=== PATIENT | male | born 1970 | race American Indian/Alaskan Native ===

== ENCOUNTER 2017-04-24 08:02 | Emergency (ER) | payer MEDICARE ==
[2017-04-24 08:13] VITALS: BP 151/94
[2017-04-24] MEDS ORDERED: DUONEB 0.5 MG-3 MG/3 ML SOLN IH ONE ×2 (08:13→10:19)
--- NOTE | 2017-04-24 08:46 | Emergency Department Report ---
HPI - General Chief Complaint: Adult Asthma Time Seen by Provider: 04/24/17 08:29 - HPI HPI: Patient is a 47-year-old male with a history of asthma whose dates he said some cold symptoms for the past week and received a treatment of pigmentary on April 19. Patient states today he began having some chest and some difficulty breathing. He denies fevers/chills/nausea/vomiting/coughing/abdominal pain/shortness of breath since dizziness ED Past Medical Hx - Past Medical History Previous Medical History?: Yes Hx Asthma: Yes - Surgical History Past Surgical History?: Yes Additional Surgical History: right collar bone surgery - Social History Smoking Status: Never Smoker Substance Use Type: Alcohol, Prescribed - Medications Home Medications: Home Medications Medication Instructions Recorded Confirmed Last Taken Type ALBUTEROL Inhaler [Proair] 2 puff IH QID PRN #1 pump 04/24/17 Unknown Rx Ipratropium/Albuterol Sulfate 1 ampul IH ONCE #1 pack 04/24/17 Unknown Rx [Duoneb 0.5 mg-3 mg/3 ml Soln] predniSONE [Deltasone] 20 mg PO QDAY #10 tab 04/24/17 Unknown Rx ED Review of Systems ROS: Stated complaint: ASTHMA Other details as noted in HPI Constitutional: denies: chills, fever Eyes: denies: eye pain, eye discharge, vision change ENT: congestion. denies: ear pain, throat pain Respiratory: wheezing. denies: cough, shortness of breath Cardiovascular: denies: chest pain, palpitations Endocrine: no symptoms reported Gastrointestinal: denies: abdominal pain, nausea, diarrhea Genitourinary: denies: urgency, dysuria Musculoskeletal: denies: back pain, joint swelling, arthralgia Skin: denies: rash, lesions Neurological: denies: headache, weakness, paresthesias Psychiatric: denies: anxiety, depression Hematological/Lymphatic: denies: easy bleeding, easy bruising Physical Exam - Physical Exam Vital Signs: Vital Signs 04/24/17 04/24/17 04/24/17 08:07 08:21 08:27 Temperature 97.5 F L Pulse Rate 81 Pulse Rate [ 85 88 Bilateral Upper Lobe] Respiratory 22 Rate Respiratory 20 20 Rate [Bilateral Upper Lobe] Blood Pressure 151/94 O2 Sat by Pulse 95 Oximetry Physical Exam: GENERAL: Alert and oriented x3, no apparent distress, Normal Gait, atraumatic. HEAD: Head is normocephalic and a-traumatic. NOSE: Nose symetrical, Nontender,Nares appeared normal. MOUTH:Mouth is well hydrated and without lesions. Tonsils nonerythematous or swollen, Uvula midline, Tongue not elevated. Mucous membranes are moist. Posterior pharynx clear, no exudate or lesions. Patent airways. NECK: Supple. Non edematous, No carotid bruits. No lymphadenopathy or thyromegaly. No C-spine tenderness LUNGS: Symetrical with respiration, moderate expiratory wheezing lower lungs bilaterally, no rales or crackles, CTAB. No use of accessory muscles HEART: S1, S2 present, regular rate and rhythm without murmur, no rubs, no gallops. SKIN: Warm and dry, No lesions, No ulceration or induration present. ED Course Vital Signs 04/24/17 04/24/17 04/24/17 08:07 08:21 08:27 Temperature 97.5 F L Pulse Rate 81 Pulse Rate [ 85 88 Bilateral Upper Lobe] Respiratory 22 Rate Respiratory 20 20 Rate [Bilateral Upper Lobe] Blood Pressure 151/94 O2 Sat by Pulse 95 Oximetry ED Medical Decision Making - Medical Decision Making 47-year-old male presents to asthma exacerbation ED course: Patient received 3 respiratory treatments of DuoNeb, Solu-Medrol. Patient's sounds and is feeling much better. Discussed with patient to follow up with primary care physician. Discussed the patient to use albuterol as needed at home. Discuss home medication of prednisone and refill on his nebulizer treatment Vital signs normalized patient is in no acute or respiratory distress Patient is alert and oriented 3 his very appreciated and states he will follow- up, Critical care attestation.: If time is entered above; I have spent that time in minutes in the direct care of this critically ill patient, excluding procedure time. ED Disposition Clinical Impression: Asthma exacerbation Disposition: DISCHARGED TO HOME OR SELFCARE Is pt being admited?: No Does the pt Need Aspirin: No Condition: Stable Instructions: Asthma (ED) Additional Instructions: if worsening symptoms return to ED Taken medication as prescribed Prescriptions: ALBUTEROL Inhaler [Proair] 2 puff IH QID PRN #1 pump PRN Reason: Shortness Of Breath Ipratropium/Albuterol Sulfate [Duoneb 0.5 mg-3 mg/3 ml Soln] 1 ampul IH ONCE #1 pack predniSONE [Deltasone] 20 mg PO QDAY #10 tab Referrals: PRIMARY CARE, [Primary Care Provider] - 3-5 Days [facility] [Outside] - 3-5 Days [facility] [Outside] - 3-5 Days [facility] [Outside] - 3-5 Days Forms: Work/School Release Form(ED) Time of Disposition: 10:32
[2017-04-24] MEDS ORDERED: ZOFRAN IV ONE (09:03)
== END 2017-04-24 11:21 | disposition home or self-care (01) ==
LOC: ED 08:02
DX: J45.909 Unspecified asthma, uncomplicated (principal)
CPT/HCPCS: 94640; 96374; 96375; 99283; J2405; J2930

== ENCOUNTER 2017-08-20 02:38 | Emergency (ER) | payer MEDICARE ==
[2017-08-20] MEDS ORDERED: DUONEB *Not for PRN Use IH ONE ×2 (02:54→03:03)
[2017-08-20] MEDS ORDERED: PROVENTIL IH ONE (03:18)
[2017-08-20] MEDS ORDERED: ATROVENT IH ONE (03:18)
--- NOTE | 2017-08-20 03:39 | Emergency Department Report ---
ED Shortness of Breath HPI - General Chief Complaint: Adult Asthma Stated Complaint: ASTHMA Time Seen by Provider: 08/20/17 03:28 Source: patient Mode of arrival: Ambulatory Limitations: No Limitations - History of Present Illness Initial Comments: 47 years old male with history of asthma coming with shortness of breath cough for 2 days, patient was using his inhaler at home was no improvement. Patient denied any chest pain he does have fever denied any nausea or vomiting. MD Complaint: shortness of breath, cough, "asthma attack" -: days(s) Improves With: bronchodilators Known History Of: asthma Associated Symptoms: denies other symptoms, cough Treatments Prior to Arrival: bronchodilator - Related Data Home Oxygen Therapy: No Previous Rx's Medication Instructions Recorded Last Taken Type ALBUTEROL Inhaler [Proair] 2 puff IH QID PRN #1 pump 04/24/17 Unknown Rx Ipratropium/Albuterol Sulfate 1 ampul IH ONCE #1 pack 04/24/17 Unknown Rx [DUONEB *Not for PRN Use*] predniSONE [Deltasone] 20 mg PO QDAY #10 tab 04/24/17 Unknown Rx ALBUTEROL Inhaler [Proair] 2 puff IH QID PRN #1 inhalation 08/20/17 Unknown Rx Azithromycin [Zithromax Z-CEZAR] 250 mg PO DAILY 1 Days 08/20/17 Unknown Rx Prednisone [predniSONE 10 mg 10 mg PO .TAPER #1 tab.ds.pk 08/20/17 Unknown Rx (6-Day Pack, 21 Tabs)] Allergies Allergy/AdvReac Type Severity Reaction Status Date / Time Penicillins Allergy Shortness Verified 04/24/17 08:13 of Breath ED Review of Systems ROS: Stated complaint: ASTHMA Other details as noted in HPI Comment: All other systems reviewed and negative Constitutional: denies: chills, fever Respiratory: denies: cough, shortness of breath, SOB with exertion Cardiovascular: denies: chest pain, palpitations, dyspnea on exertion Gastrointestinal: denies: abdominal pain, nausea, vomiting Neurological: denies: headache, weakness, paresthesias ED Past Medical Hx - Past Medical History Previous Medical History?: Yes Hx Asthma: Yes - Surgical History Additional Surgical History: right collar bone surgery - Social History Smoking Status: Never Smoker - Medications Home Medications: Home Medications Medication Instructions Recorded Confirmed Last Taken Type ALBUTEROL Inhaler [Proair] 2 puff IH QID PRN #1 pump 04/24/17 Unknown Rx Ipratropium/Albuterol Sulfate 1 ampul IH ONCE #1 pack 04/24/17 Unknown Rx [DUONEB *Not for PRN Use*] predniSONE [Deltasone] 20 mg PO QDAY #10 tab 04/24/17 Unknown Rx ALBUTEROL Inhaler [Proair] 2 puff IH QID PRN #1 inhalation 08/20/17 Unknown Rx Azithromycin [Zithromax Z-CEZAR] 250 mg PO DAILY 1 Days 08/20/17 Unknown Rx Prednisone [predniSONE 10 mg 10 mg PO .TAPER #1 tab.ds.pk 08/20/17 Unknown Rx (6-Day Pack, 21 Tabs)] ED Physical Exam - General Limitations: No Limitations General appearance: alert, in distress (moderate respiratory distress) - Head Head exam: Present: atraumatic - ENT ENT exam: Present: normal exam - Neck Neck exam: Present: normal inspection - Respiratory Respiratory exam: Present: respiratory distress (moderate), wheezes, rales, rhonchi, accessory muscle use, decreased breath sounds, prolonged expiratory. Absent: stridor - Cardiovascular Cardiovascular Exam: Present: regular rate, normal rhythm, normal heart sounds - GI/Abdominal GI/Abdominal exam: Present: soft. Absent: tenderness, guarding, rebound - Back Exam Back exam: Absent: CVA tenderness (R), CVA tenderness (L) - Neurological Exam Neurological exam: Present: alert, oriented X3, CN II-XII intact - Skin Skin exam: Present: warm, intact, normal color ED Course Vital Signs 08/20/17 08/20/17 08/20/17 02:43 02:55 03:15 Temperature 98.0 F 99.7 F H Pulse Rate 73 73 Pulse Rate [ Bilateral Middle Lobe] Respiratory 18 22 16 Rate Respiratory Rate [Bilateral Middle Lobe] Blood Pressure 127/87 125/87 O2 Sat by Pulse 96 98 98 Oximetry 08/20/17 08/20/17 08/20/17 03:28 03:30 03:45 Temperature Pulse Rate 67 67 Pulse Rate [ 70 Bilateral Middle Lobe] Respiratory 10 L 7 L Rate Respiratory 18 Rate [Bilateral Middle Lobe] Blood Pressure 125/91 125/91 O2 Sat by Pulse 100 100 Oximetry 08/20/17 08/20/17 04:00 04:15 Temperature Pulse Rate 64 68 Pulse Rate [ Bilateral Middle Lobe] Respiratory 10 L 12 Rate Respiratory Rate [Bilateral Middle Lobe] Blood Pressure 135/90 135/90 O2 Sat by Pulse 99 99 Oximetry - Reevaluation(s) Reevaluation #1: 08/20/17 06:08 Patient stated that he is feeling much better. On exam lungs clear almost side , patient will be discharged home with prednisone and prescription for pro-air. ED Medical Decision Making - Radiology Data Radiology results: image reviewed Chest x-ray is negative for acute abnormality Critical care attestation.: If time is entered above; I have spent that time in minutes in the direct care of this critically ill patient, excluding procedure time. ED Disposition Clinical Impression: Asthma exacerbation Disposition: DC-01 TO HOME OR SELFCARE Is pt being admited?: No Condition: Stable Instructions: Asthma (ED) Prescriptions: ALBUTEROL Inhaler [Proair] 2 puff IH QID PRN #1 inhalation PRN Reason: Shortness Of Breath Azithromycin [Zithromax Z-CEZAR] 250 mg PO DAILY 1 Days Prednisone [predniSONE 10 mg (6-Day Pack, 21 Tabs)] 10 mg PO .TAPER #1 tab.ds.pk
[2017-08-20] MEDS ORDERED: ZOFRAN IV ONE (04:31)
[2017-08-20 06:44] VITALS: BP 125/91
--- NOTE | 2017-08-20 09:18 | XRay Report ---
Single view chest: History: Asthma. Findings: Normal cardiomediastinal silhouette. Trachea is midline. No consolidation, pneumothorax or pleural effusion. Impression: No acute cardiopulmonary findings.
== END 2017-08-20 06:44 | disposition home or self-care (01) ==
LOC: ED 02:38
DX: J45.901 Unspecified asthma with (acute) exacerbation (principal); Z88.0 Allergy status to penicillin
CPT/HCPCS: 71010; 94640; 96374; 96375; 99284; J2405; J2930

== ENCOUNTER 2017-10-18 11:25 | Emergency (ER) | payer MEDICARE ==
[2017-10-18] MEDS ORDERED: PROVENTIL IH ONE ×2 (11:46→11:48)
[2017-10-18] MEDS ORDERED: ATROVENT IH ONE ×2 (11:46→11:49)
[2017-10-18 12:02] LABS: Basophils % (Auto) 0.9 % (0.0-1.8); Eosinophils % (Auto) 11.6 % (0.0-4.3); Mean Corpuscular HGB Conc 34 % (32-34); Mean Corpuscular Hemoglobin 30 pg (28-32); Mean Corpuscular Volume 88 fl (84-94); Platelet Count 220 K/mm3 (140-440); Red Blood Count 6.01 M/mm3 (3.65-5.03); Red Cell Distribution Width 14.2 % (13.2-15.2); White Blood Count 7.5 K/mm3 (4.5-11.0)
[2017-10-18] MEDS ORDERED: MAGNESIUM SULFATE 2GM/50ML 2 GM/50 ML BAG IV ONE (12:16)
[2017-10-18] MEDS ORDERED: ZOFRAN IV ONE (12:16)
[2017-10-18 12:19] LABS: INR 0.89 (0.87-1.13)
[2017-10-18 12:19] LABS: Anion Gap 19 mmol/L; BUN/Creatinine Ratio 16; Blood Urea Nitrogen 14 mg/dL (9-20); Calcium 9.8 mg/dL (8.4-10.2); Carbon Dioxide 25 mmol/L (22-30); Chloride 100.5 mmol/L (98-107); Glucose 85 mg/dL (75-100); Potassium 4.5 mmol/L (3.6-5.0); Sodium 140 mmol/L (137-145)
[2017-10-18 12:20] LABS: Creatine Kinase MB 2.7 ng/mL (0.0-4.0); Partial Thromboplastin Time 33.4 Sec. (24.2-36.6)
[2017-10-18 12:22] LABS: Alanine Aminotransferase 24 units/L (7-56); Albumin 4.7 g/dL (3.9-5); Albumin/Globulin Ratio 1.4 %; Alkaline Phosphatase 66 units/L (35-129); Creatine Kinase 194 units/L (55-170); Total Protein 8.1 g/dL (6.3-8.2)
[2017-10-18 12:27] LABS: Bilirubin,Direct < 0.2 mg/dL (0-0.2); Bilirubin,Indirect 0.6 mg/dL
--- NOTE | 2017-10-18 12:29 | XRay Report ---
AP CHEST: HISTORY: Hypertension, shortness of breath AP view of the chest demonstrates a normal mediastinal and cardiac contour with clear lungs and normal bony and soft tissue structures. IMPRESSION: Unremarkable AP chest.
--- NOTE | 2017-10-18 13:12 | Emergency Department Report ---
ED General Adult HPI - General Chief complaint: Adult Asthma Stated complaint: ASTHMA ATTACK Time Seen by Provider: 10/18/17 11:48 Source: patient Mode of arrival: Ambulatory Limitations: No Limitations - History of Present Illness Initial comments: The patient complains of exacerbation of his asthma. He stated he returned from [facility] and his asthma has been flared up for the past few days. He states there is nothing atypical about it. He does not refer any productive cough. Denies chest pain fever or chills. He said no leg pain swelling or pain. He states he needs Solu-Medrol. He is not currently on steroids. He is already received neb therapy, my encounter. He states he is about ready to leave even before he just received his steroids. -: Gradual, days(s) Consistency: constant (wheezing but no pain) Associated Symptoms: denies other symptoms Treatments Prior to Arrival: none - Related Data Previous Rx's Medication Instructions Recorded Last Taken Type ALBUTEROL Inhaler [Proair] 2 puff IH QID PRN #1 pump 04/24/17 Unknown Rx Ipratropium/Albuterol Sulfate 1 ampul IH ONCE #1 pack 04/24/17 Unknown Rx [DUONEB *Not for PRN Use*] predniSONE [Deltasone] 20 mg PO QDAY #10 tab 04/24/17 Unknown Rx ALBUTEROL Inhaler [Proair] 2 puff IH QID PRN #1 inhalation 08/20/17 Unknown Rx Azithromycin [Zithromax Z-CEZAR] 250 mg PO DAILY 1 Days tab 08/20/17 Unknown Rx Prednisone [predniSONE 10 mg 10 mg PO .TAPER #1 tab.ds.pk 08/20/17 Unknown Rx (6-Day Pack, 21 Tabs)] ALBUTEROL Inhaler [ProAir HFA 2 puff IH QID PRN #1 inhalation 10/18/17 Unknown Rx Inhaler] Albuterol Sulfate [Albuterol 0.63% 0.63 mg IH QID PRN 30 Days #1 ml 10/18/17 Unknown Rx NEBS] Fluticasone/Salmeterol [Advair 1 puff IH BID #1 disk.w.dev 10/18/17 Unknown Rx Diskus 500-50 mcg] predniSONE [Deltasone] 60 mg PO QDAY #20 tab 10/18/17 Unknown Rx Allergies Allergy/AdvReac Type Severity Reaction Status Date / Time Penicillins Allergy Shortness Verified 04/24/17 08:13 of Breath ED Review of Systems ROS: Stated complaint: ASTHMA ATTACK Other details as noted in HPI Constitutional: denies: chills, fever Eyes: denies: eye pain, eye discharge, vision change ENT: denies: ear pain, throat pain Respiratory: wheezing Cardiovascular: denies: chest pain, palpitations Endocrine: no symptoms reported Gastrointestinal: denies: abdominal pain, nausea, diarrhea Genitourinary: denies: urgency, dysuria Musculoskeletal: denies: back pain, joint swelling, arthralgia Skin: denies: rash, lesions Neurological: denies: headache, weakness, paresthesias Psychiatric: denies: anxiety, depression Hematological/Lymphatic: denies: easy bleeding, easy bruising ED Past Medical Hx - Past Medical History Previous Medical History?: Yes Hx Asthma: Yes - Surgical History Additional Surgical History: right collar bone surgery - Social History Smoking Status: Never Smoker Substance Use Type: None - Medications Home Medications: Home Medications Medication Instructions Recorded Confirmed Last Taken Type ALBUTEROL Inhaler [Proair] 2 puff IH QID PRN #1 pump 04/24/17 Unknown Rx Ipratropium/Albuterol Sulfate 1 ampul IH ONCE #1 pack 04/24/17 Unknown Rx [DUONEB *Not for PRN Use*] predniSONE [Deltasone] 20 mg PO QDAY #10 tab 04/24/17 Unknown Rx ALBUTEROL Inhaler [Proair] 2 puff IH QID PRN #1 inhalation 08/20/17 Unknown Rx Azithromycin [Zithromax Z-CEZAR] 250 mg PO DAILY 1 Days tab 08/20/17 Unknown Rx Prednisone [predniSONE 10 mg 10 mg PO .TAPER #1 tab.ds.pk 08/20/17 Unknown Rx (6-Day Pack, 21 Tabs)] ALBUTEROL Inhaler [ProAir HFA 2 puff IH QID PRN #1 inhalation 10/18/17 Unknown Rx Inhaler] Albuterol Sulfate [Albuterol 0.63% 0.63 mg IH QID PRN 30 Days #1 ml 10/18/17 Unknown Rx NEBS] Fluticasone/Salmeterol [Advair 1 puff IH BID #1 disk.w.dev 10/18/17 Unknown Rx Diskus 500-50 mcg] predniSONE [Deltasone] 60 mg PO QDAY #20 tab 10/18/17 Unknown Rx ED Physical Exam - General Limitations: No Limitations General appearance: alert, in no apparent distress - Head Head exam: Present: atraumatic, normocephalic - Eye Eye exam: Present: normal appearance - ENT ENT exam: Present: mucous membranes moist - Neck Neck exam: Present: normal inspection. Absent: tenderness, meningismus - Respiratory Respiratory exam: Present: wheezes - Cardiovascular Cardiovascular Exam: Present: regular rate, normal rhythm. Absent: systolic murmur, diastolic murmur, rubs, gallop - GI/Abdominal GI/Abdominal exam: Present: soft, normal bowel sounds. Absent: distended, tenderness, guarding, rebound, rigid - Rectal Rectal exam: Present: deferred - Extremities Exam Extremities exam: Present: normal inspection - Back Exam Back exam: Present: normal inspection - Neurological Exam Neurological exam: Present: alert, oriented X3, CN II-XII intact. Absent: motor sensory deficit - Psychiatric Psychiatric exam: Present: normal affect, normal mood - Skin Skin exam: Present: warm, dry, intact, normal color. Absent: rash ED Course Vital Signs 10/18/17 10/18/17 10/18/17 11:32 11:46 11:51 Temperature 98.7 F 97.7 F Pulse Rate 104 H 94 H Pulse Rate [ 87 Posterior Bilateral Throughout] Respiratory 24 24 Rate Respiratory 26 H Rate [Posterior Bilateral Throughout] Blood Pressure 116/83 Blood Pressure 136/80 [Right] O2 Sat by Pulse 95 97 Oximetry 10/18/17 12:55 Temperature Pulse Rate Pulse Rate [ 104 H Posterior Bilateral Throughout] Respiratory Rate Respiratory 20 Rate [Posterior Bilateral Throughout] Blood Pressure Blood Pressure [Right] O2 Sat by Pulse Oximetry - Reevaluation(s) Reevaluation #1: Patient with nebulized therapy. He was given Solu-Medrol sulfate. His Advair be renewed and he will be placed on prednisone. 10/18/17 13:08 ED Medical Decision Making - Lab Data Result diagrams: 10/18/17 11:44 10/18/17 11:44 Laboratory Results - last 24 hr 10/18/17 10/18/17 10/18/17 11:44 11:44 11:55 WBC 7.5 RBC 6.01 H Hgb 18.0 H Hct 53.0 H MCV 88 MCH 30 MCHC 34 RDW 14.2 Plt Count 220 Lymph % (Auto) 21.0 [place] % (Auto) 9.6 H Eos % (Auto) 11.6 H Baso % (Auto) 0.9 Lymph # 1.6 [place] # 0.7 Eos # 0.9 H Baso # 0.1 Seg Neutrophils % 56.9 Seg Neutrophils # 4.3 PT 12.5 INR 0.89 APTT 33.4 Sodium 140 Potassium 4.5 Chloride 100.5 Carbon Dioxide 25 Anion Gap 19 BUN 14 Creatinine 0.9 Estimated GFR > 60 BUN/Creatinine Ratio 16 Glucose 85 Calcium 9.8 Magnesium Total Bilirubin Direct Bilirubin Indirect Bilirubin AST ALT Alkaline Phosphatase Total Creatine Kinase CK-MB (CK-2) CK-MB (CK-2) Rel Index Troponin T < 0.010 NT-Pro-B Natriuret Pep Total Protein Albumin Albumin/Globulin Ratio 10/18/17 11:55 WBC RBC Hgb Hct MCV MCH MCHC RDW Plt Count Lymph % (Auto) [place] % (Auto) Eos % (Auto) Baso % (Auto) Lymph # [place] # Eos # Baso # Seg Neutrophils % Seg Neutrophils # PT INR APTT Sodium Potassium Chloride Carbon Dioxide Anion Gap BUN Creatinine Estimated GFR BUN/Creatinine Ratio Glucose Calcium Magnesium 2.00 Total Bilirubin 0.80 Direct Bilirubin < 0.2 Indirect Bilirubin 0.6 AST 21 ALT 24 Alkaline Phosphatase 66 Total Creatine Kinase 194 H CK-MB (CK-2) 2.7 CK-MB (CK-2) Rel Index 1.3 Troponin T < 0.010 NT-Pro-B Natriuret Pep 8.67 Total Protein 8.1 Albumin 4.7 Albumin/Globulin Ratio 1.4 Critical care attestation.: If time is entered above; I have spent that time in minutes in the direct care of this critically ill patient, excluding procedure time. ED Disposition Clinical Impression: Polycythemia Exacerbation of asthma Qualifiers: Asthma severity: moderate Asthma persistence: persistent Qualified Code(s): J45.41 - Moderate persistent asthma with (acute) exacerbation Disposition: TO HOME OR SELFCARE Is pt being admited?: No Does the pt Need Aspirin: No Condition: Stable Instructions: Asthma (ED) Additional Instructions: You for red blood cell count was a little bit high. This needs some follow-up. It might be due to mild dehydration so increase fluids. Rx prednisone and Advair. I have given you additional meds for home nebulizer machine as well as she need them. Follow-up with your primary care provider. If you do not have one [facility] or a pulmonology specialist. Prescriptions: ALBUTEROL Inhaler [ProAir HFA Inhaler] 2 puff IH QID PRN #1 inhalation PRN Reason: Shortness Of Breath Albuterol Sulfate [Albuterol 0.63% NEBS] 0.63 mg IH QID PRN 30 Days #1 ml PRN Reason: Wheezing Fluticasone/Salmeterol [Advair Diskus 500-50 mcg] 1 puff IH BID #1 disk.w.dev predniSONE [Deltasone] 60 mg PO QDAY #20 tab Referrals: PRIMARY CARE, [Primary Care Provider] - 3-5 Days Time of Disposition: 13:17
[2017-10-18 13:32] VITALS: BP 106/79
== END 2017-10-18 13:38 | disposition home or self-care (01) ==
LOC: ED 11:25
DX: J45.41 Moderate persistent asthma with (acute) exacerbation (principal); D75.1 Secondary polycythemia; Z88.0 Allergy status to penicillin
CPT/HCPCS: 36415; 71010; 80048; 80074; 82550; 82553; 83735; 83880; 84484; 85025; 85610; 85730; 93005; 93010; 94644; 96365; 96375; 99284; J2405; J2930; J3475

== ENCOUNTER 2018-01-23 22:06 | Emergency (ER) | payer MEDICARE ==
[2018-01-23] MEDS ORDERED: PROVENTIL IH ONE ×2 (22:18→22:20)
[2018-01-23] MEDS ORDERED: DUONEB *Not for PRN Use IH ONE ×3 (22:18→23:14)
[2018-01-23] MEDS ORDERED: DELTASONE PO ONE (23:14)
--- NOTE | 2018-01-23 23:41 | XRay Report ---
FINAL REPORT PROCEDURE: XR CHEST 1V AP TECHNIQUE: Chest radiograph anteroposterior view. CPT 96648 HISTORY: chest pain COMPARISON: No prior studies are available for comparison. FINDINGS: Heart: Normal. Mediastinum/Vessels: Normal. Lungs/Pleural space: Mild infiltrate left lower lung. No effusion or pneumothorax. Bony thorax: No acute osseous abnormality. Life support devices: None. IMPRESSION: Mild left lower infiltrate.
[2018-01-23 23:50] LABS: Basophils % (Auto) 0.5 % (0.0-1.8); Eosinophils # (Auto) 0.8 K/mm3 (0.0-0.4); Eosinophils % (Auto) 9.4 % (0.0-4.3); Hematocrit 48.8 % (35.5-45.6); Hemoglobin 16.2 gm/dl (11.8-15.2); Lymphocytes % (Auto) 23.7 % (13.4-35.0); Mean Corpuscular HGB Conc 33 % (32-34); Mean Corpuscular Hemoglobin 29 pg (28-32); Mean Corpuscular Volume 88 fl (84-94); Monocytes # (Auto) 0.8 K/mm3 (0.0-0.8); Monocytes % (Auto) 9.1 % (0.0-7.3); Platelet Count 231 K/mm3 (140-440); Red Blood Count 5.54 M/mm3 (3.65-5.03); Red Cell Distribution Width 14.3 % (13.2-15.2)
[2018-01-24] LABS: BUN/Creatinine Ratio 15; Blood Urea Nitrogen 15 mg/dL (9-20); Calcium 9.3 mg/dL (8.4-10.2); Hemolysis Index 117
[2018-01-24] MEDS ORDERED: PROVENTIL IH ONE ×3 (03:42→03:43)
[2018-01-24] MEDS ORDERED: LEVAQUIN PO ONE (03:43)
--- NOTE | 2018-01-24 03:43 | Emergency Department Report ---
HPI - General Chief Complaint: Adult Asthma Time Seen by Provider: 01/24/18 03:39 - HPI HPI: Patient reports that he is having asthma exacerbation and he is running out of his albuterol Atrovent nebulizer and also his inhaler and Advair pump. Reported wheezing and cough with shortness of breath. Denies any fever or chills. Denies any nausea or vomiting. Pain is 0 out of 10. He reports that it started with runny nose that progressed into asthma flareup. Patient said that he always get asthma flare up at this time in the year. History of pneumonia years ago. Denies any chest pain. Patient reports that his only medical problems is asthma. Patient said he did have a primary care physician he moved from where his primary care physician within [place] so he will need a new primary care physician. ED Past Medical Hx - Past Medical History Previous Medical History?: Yes Hx Asthma: Yes - Surgical History Past Surgical History?: Yes Additional Surgical History: right collar bone surgery, 1978 - Family History Family history: hypertension - Social History Smoking Status: Never Smoker Substance Use Type: Alcohol - Medications Home Medications: Home Medications Medication Instructions Recorded Confirmed Last Taken Type ALBUTEROL Inhaler [Proair] 2 puff IH QID PRN #1 pump 04/24/17 Unknown Rx predniSONE [Deltasone] 20 mg PO QDAY #10 tab 04/24/17 Unknown Rx ALBUTEROL Inhaler [Proair] 2 puff IH QID PRN #1 inhalation 08/20/17 Unknown Rx Azithromycin [Zithromax Z-CEZAR] 250 mg PO DAILY 1 Days tab 08/20/17 Unknown Rx Prednisone [predniSONE 10 mg 10 mg PO .TAPER #1 tab.ds.pk 08/20/17 Unknown Rx (6-Day Pack, 21 Tabs)] Albuterol Sulfate [Albuterol 0.63% 0.63 mg IH QID PRN 30 Days #1 ml 10/18/17 Unknown Rx NEBS] predniSONE [Deltasone] 60 mg PO QDAY #20 tab 10/18/17 Unknown Rx ALBUTEROL Inhaler [ProAir HFA 2 puff IH QID PRN #1 inhalation 01/24/18 Unknown Rx Inhaler] Fluticasone/Salmeterol [Advair 1 puff IH BID #1 disk.w.dev 01/24/18 Unknown Rx Diskus 500-50 mcg] Ipratropium/Albuterol Sulfate 1 ampul IH Q4H PRN #1 pack 01/24/18 Unknown Rx [DUONEB *Not for PRN Use*] Levofloxacin [Levaquin] 750 mg PO QDAY 9 Days #9 tablet 01/24/18 Unknown Rx guaiFENesin/DM 100/10MG 10 ml PO Q6HR PRN #200 ml 01/24/18 Unknown Rx [Robitussin Dm] ED Review of Systems ROS: Stated complaint: JEANNA HX OF ASTHMA Other details as noted in HPI Comment: All other systems reviewed and negative Constitutional: no symptoms reported ENT: congestion. denies: ear pain, throat pain Respiratory: cough, shortness of breath, SOB with exertion, SOB at rest, wheezing. denies: orthopnea, stridor Cardiovascular: denies: chest pain, palpitations, dyspnea on exertion, edema, syncope, paroxysmal nocturnal dyspnea Gastrointestinal: denies: abdominal pain, nausea, vomiting, diarrhea Genitourinary: denies: dysuria, hematuria Musculoskeletal: denies: back pain, joint swelling, arthralgia, myalgia Skin: denies: rash Neurological: denies: headache, numbness, paresthesias, confusion, abnormal gait Physical Exam - Physical Exam Vital Signs: Vital Signs 01/23/18 01/24/18 01/24/18 22:25 00:21 00:31 Temperature 98.3 F Pulse Rate 90 Pulse Rate [ 93 H 96 H Posterior Bilateral Throughout] Respiratory 18 Rate Respiratory 20 20 Rate [Posterior Bilateral Throughout] Blood Pressure 127/79 O2 Sat by Pulse 96 Oximetry Vital Signs 01/23/18 01/24/18 01/24/18 22:25 00:21 00:31 Temperature 98.3 F Pulse Rate 90 Pulse Rate [ 93 H 96 H Posterior Bilateral Throughout] Respiratory 18 Rate Respiratory 20 20 Rate [Posterior Bilateral Throughout] Blood Pressure 127/79 Blood Pressure [Right] O2 Sat by Pulse 96 Oximetry 01/24/18 05:02 Temperature 98.2 F Pulse Rate 85 Pulse Rate [ Posterior Bilateral Throughout] Respiratory 17 Rate Respiratory Rate [Posterior Bilateral Throughout] Blood Pressure Blood Pressure 133/80 [Right] O2 Sat by Pulse 96 Oximetry General: This is 48-year-old male well-nourished well-developed in no acute distress. Physical Exam: Head: Normocephalic, atraumatic, no abrasion, no bruising and no contusion. Eyes: Biateral pupils equal and reactive to light, bilateral EOM intact.. Bilateral conjunctival and sclera without injection, normal accommodation. No nystagmus Mouth: Moist, no pharyngeal exudate or erythema. No peritonsillar abscesses. Uvula is midline and oral airways patent. Ears: TM congested without erythema. Bilateral EAC without any redness swelling or drainage. No mastoid bone tenderness Nose: Bilateral nasal turbinates congested without erythema and clear drainage. Maxillary and frontal sinuses non-tender to palpate. Neck: Supple, No Cervical adenopathy, full range of motion and no C-spine tenderness. No swelling or tracheal deviation normal reflexes Cardiovascular: S1, S2. Regular rate and rhythm. No murmur. Capillary refill is less then 3 seconds. Lungs: Patient with wheezing throughout lung hicks, mild increased work of breathing, dry cough. No rhonchi or rales. Abdomen: Non-tender to palpate in all quadrants, no guarding or rebound tenderness, positive bowel sounds in all quadrants. No CVA tenderness. No hernia, bruit or mass. No rigidity or distention. Extremities: No clubbing, cyanosis or edema. +2 pulses. No neurovascular compromise Skin: Clean, dry and intact. No rash or lesions.. Psych: Normal mood and behavior ED Course Vital Signs 01/23/18 01/24/18 01/24/18 22:25 00:21 00:31 Temperature 98.3 F Pulse Rate 90 Pulse Rate [ 93 H 96 H Posterior Bilateral Throughout] Respiratory 18 Rate Respiratory 20 20 Rate [Posterior Bilateral Throughout] Blood Pressure 127/79 O2 Sat by Pulse 96 Oximetry Vital Signs 01/23/18 01/24/18 01/24/18 22:25 00:21 00:31 Temperature 98.3 F Pulse Rate 90 Pulse Rate [ 93 H 96 H Posterior Bilateral Throughout] Respiratory 18 Rate Respiratory 20 20 Rate [Posterior Bilateral Throughout] Blood Pressure 127/79 Blood Pressure [Right] O2 Sat by Pulse 96 Oximetry 01/24/18 05:02 Temperature 98.2 F Pulse Rate 85 Pulse Rate [ Posterior Bilateral Throughout] Respiratory 17 Rate Respiratory Rate [Posterior Bilateral Throughout] Blood Pressure Blood Pressure 133/80 [Right] O2 Sat by Pulse 96 Oximetry - Reevaluation(s) Reevaluation #1: 01/24/18 04:18 Patient received albuterol nebulizer 2.5 mg inhalation with Atrovent 1 mg nebulizer in triage area. Patient still with wheezes then and said he feels a little better but not completely. He received additional albuterol nebulizer 5 mg. Patient also received 60 mg steroids in triage area. Reevaluation #2: 01/24/18 05:39 Chest x-ray shows a patient with left lower lobe infiltrate. Patient reports that he still much better after nebulizer treatments. Patient started on Levaquin 750 mg by mouth. Lung sounds are clear present. ED Medical Decision Making - Lab Data Result diagrams: 01/23/18 23:26 01/23/18 23:26 Lab Results 01/23/18 01/23/18 01/23/18 Range/Units 23:26 23:26 Unknown WBC 8.4 (4.5-11.0) K/mm3 RBC 5.54 H (3.65-5.03) M/mm3 Hgb 16.2 H (11.8-15.2) gm/dl Hct 48.8 H (35.5-45.6) % MCV 88 (84-94) fl MCH 29 (28-32) pg MCHC 33 (32-34) % RDW 14.3 (13.2-15.2) % Plt Count 231 (140-440) K/mm3 Lymph % (Auto) 23.7 (13.4-35.0) % [place] % (Auto) 9.1 H (0.0-7.3) % Eos % (Auto) 9.4 H (0.0-4.3) % Baso % (Auto) 0.5 (0.0-1.8) % Lymph # 2.0 (1.2-5.4) K/mm3 [place] # 0.8 (0.0-0.8) K/mm3 Eos # 0.8 H (0.0-0.4) K/mm3 Baso # 0.0 (0.0-0.1) K/mm3 Seg Neutrophils % 57.3 (40.0-70.0) % Seg Neutrophils # 4.8 (1.8-7.7) K/mm3 Sodium 140 (137-145) mmol/L Potassium 4.4 (3.6-5.0) mmol/L Chloride 99.4 (98-107) mmol/L Carbon Dioxide 23 (22-30) mmol/L Anion Gap 22 mmol/L BUN 15 (9-20) mg/dL Creatinine 1.0 (0.8-1.5) mg/dL Estimated GFR > 60 ml/min BUN/Creatinine Ratio 15 % Glucose 96 (75-100) mg/dL Calcium 9.3 (8.4-10.2) mg/dL NT-Pro-B Natriuret Pep 33.19 (0-450) pg/mL Influenza A (Rapid) Negative (Negative) Influenza B (Rapid) Negative (Negative) Cultures are pending - Radiology Data Radiology results: report reviewed Chest x-ray with mild left lower lobe infiltrates - Medical Decision Making Patient presented emergency room report that he sign an asthma flare up and he would like to have refill on his Advair, DuoNeb nebulizer, albuterol inhaler. He reports shortness of breath, cough and wheezing. Patient said he does not have a primary care physician at present his last primary care was instilled into the knee move closer to this area. Chest x-ray found patient with left lower lobe infiltrate. CBC and chemistry are stable. No elevation in white count. Patient received a total of 7.5 mg of albuterol while in the emergency room and 1 mg of Atrovent nebulizer, 60 mg of prednisone. He reports that he seemed better. Vital signs are stable, afebrile. I discussed patient chest x- ray findings, laboratory findings. See details on the laboratory section for labs and radiology section for chest x-ray. Patient will be referred to [facility] and I informed him that he needs to call today to schedule an appointment to follow-up pneumonia. Patient denies any immunocompromise problems. He received Levaquin 750 mg by mouth in emergency room and patient discharged home in stable condition with prescription for Levaquin, DuoNeb nebulizer, albuterol inhaler and Advair. I discussed this case with Dr. Romero and he agrees with treatment plan based on patient's presentation, clinical findings, labs and x-ray. Critical care attestation.: If time is entered above; I have spent that time in minutes in the direct care of this critically ill patient, excluding procedure time. ED Disposition Clinical Impression: Cough in adult, Mild shortness of breath Left lower lobe pneumonia Qualifiers: Pneumonia type: due to unspecified organism Qualified Code(s): J18.1 - Lobar pneumonia, unspecified organism Asthma attack Qualifiers: Asthma severity: mild Asthma persistence: intermittent Qualified Code(s): J45.21 - Mild intermittent asthma with (acute) exacerbation Disposition: - TO HOME OR SELFCARE Is pt being admited?: No Does the pt Need Aspirin: No Condition: Stable Instructions: Asthma (ED), Community-acquired Pneumonia (ED), Acute Cough (ED) Additional Instructions: Please follow up at [facility] tomorrow for follow-up pneumonia. Call today to schedule an appointment Please take antibiotic as prescribed, U received the first dose todaso start taking next dose starting in on 01/25/2018 Use Duoneb every 4 hours 2 days and then as needed. If you develop increasing shortness of breath, return in asthma with wheezing and coughing, fever and/or chills, weakness, nausea no vomiting please return to the emergency room DAVID otherwise follow-up with primary care at [facility]. Make sure you rest for 72 hours. Prescriptions: ALBUTEROL Inhaler [ProAir HFA Inhaler] 2 puff IH QID PRN #1 inhalation PRN Reason: wheezing and cough Fluticasone/Salmeterol [Advair Diskus 500-50 mcg] 1 puff IH BID #1 disk.w.dev guaiFENesin/DM 100/10MG [Robitussin Dm] 10 ml PO Q6HR PRN #200 ml PRN Reason: cough expectorant Ipratropium/Albuterol Sulfate [DUONEB *Not for PRN Use*] 1 ampul IH Q4H PRN #1 pack PRN Reason: wheezing and cough Levofloxacin [Levaquin] 750 mg PO QDAY 9 Days #9 tablet Referrals: [facility] [Outside] - 01/25/18 Forms: Work/School Release Form(ED)
[2018-01-24 05:05] VITALS: BP 133/80
== END 2018-01-24 06:00 | disposition home or self-care (01) ==
LOC: ED 22:06
DX: J18.1 Lobar pneumonia, unspecified organism (principal); J45.21 Mild intermittent asthma with (acute) exacerbation; Z88.0 Allergy status to penicillin
CPT/HCPCS: 36415; 71045; 80048; 83880; 85025; 87040; 87400; 94640; 99284; J7512

== ENCOUNTER 2018-03-08 14:38 | Emergency (ER) | payer MEDICARE ==
[2018-03-08] MEDS ORDERED: DUONEB *Not for PRN Use IH ONE ×3 (15:17→18:43)
[2018-03-08] MEDS ORDERED: ZOFRAN ONE (15:22)
[2018-03-08] MEDS ORDERED: ZOFRAN IM ONE (15:28)
--- NOTE | 2018-03-08 18:51 | Emergency Department Report ---
ED Asthma HPI - General Chief Complaint: Adult Asthma Stated Complaint: ASTHMA Time Seen by Provider: 03/08/18 18:21 Source: patient Mode of arrival: Ambulatory Limitations: No Limitations - History of Present Illness Initial Comments: This is a 48-year-old male nontoxic, well nourished in appearance, no acute signs of distress presents to the ED with c/o of intermittent wheezing and shortness of breathe x2 days. Patient stated that this year around with pollen he develops symptoms of asthma exacerbation. Patient stated he was outside a lot. Patient states wheezing makes him have shortness of breath. Patient denies any calf pain, calf tenderness. Denies any recent trauma, localized, or recent hospital stays. Patient denies any cough or any other URI. Patient denies any chest pain, fever, chills, nausea, vomiting, headache, stiff neck, bowel pain, hemoptysis, numbness or tingling. Patient denies taking any medication for his symptoms. Patient states allergies to PCN. Past medical history is asthma. MD Complaint: "asthma attack", wheezing -: days(s) (2) Asthma History: childhood onset Severity: mild Context: none known Associated Symptoms: none - Related Data Current Asthma Therapy: none Previous Rx's Medication Instructions Recorded Last Taken Type ALBUTEROL Inhaler [Proair] 2 puff IH QID PRN #1 pump 04/24/17 Unknown Rx predniSONE [Deltasone] 20 mg PO QDAY #10 tab 04/24/17 Unknown Rx ALBUTEROL Inhaler [Proair] 2 puff IH QID PRN #1 inhalation 08/20/17 Unknown Rx Azithromycin [Zithromax Z-CEZAR] 250 mg PO DAILY 1 Days tab 08/20/17 Unknown Rx Prednisone [predniSONE 10 mg 10 mg PO .TAPER #1 tab.ds.pk 08/20/17 Unknown Rx (6-Day Pack, 21 Tabs)] Albuterol Sulfate [Albuterol 0.63% 0.63 mg IH QID PRN 30 Days #1 ml 10/18/17 Unknown Rx NEBS] predniSONE [Deltasone] 60 mg PO QDAY #20 tab 10/18/17 Unknown Rx ALBUTEROL Inhaler [ProAir HFA 2 puff IH QID PRN #1 inhalation 01/24/18 Unknown Rx Inhaler] Fluticasone/Salmeterol [Advair 1 puff IH BID #1 disk.w.dev 01/24/18 Unknown Rx Diskus 500-50 mcg] Ipratropium/Albuterol Sulfate 1 ampul IH Q4H PRN #1 pack 01/24/18 Unknown Rx [DUONEB *Not for PRN Use*] Levofloxacin [Levaquin] 750 mg PO QDAY 9 Days #9 tablet 01/24/18 Unknown Rx guaiFENesin/DM 100/10MG 10 ml PO Q6HR PRN #200 ml 01/24/18 Unknown Rx [Robitussin Dm] ALBUTEROL Inhaler [ProAir HFA 2 puff IH QID PRN #1 inhalation 03/08/18 Unknown Rx Inhaler] Azithromycin [Zithromax Z-CEZAR] 250 mg PO DAILY #6 tablet 03/08/18 Unknown Rx Fluticasone/Salmeterol [Advair 1 puff IH BID #1 disk.w.dev 03/08/18 Unknown Rx Diskus 500-50 mcg] Prednisone [predniSONE 10 mg 10 mg PO .TAPER #1 tab.ds.pk 03/08/18 Unknown Rx (6-Day Pack, 21 Tabs)] Allergies Allergy/AdvReac Type Severity Reaction Status Date / Time Penicillins Allergy Shortness Verified 04/24/17 08:13 of Breath ED Review of Systems ROS: Stated complaint: ASTHMA Other details as noted in HPI Constitutional: denies: chills, fever Eyes: denies: eye pain, eye discharge, vision change ENT: denies: ear pain, throat pain Respiratory: shortness of breath, wheezing. denies: cough Cardiovascular: denies: chest pain, palpitations Endocrine: no symptoms reported Gastrointestinal: denies: abdominal pain, nausea, diarrhea Genitourinary: denies: urgency, dysuria Musculoskeletal: denies: back pain, joint swelling, arthralgia Skin: denies: rash, lesions Neurological: denies: headache, weakness, paresthesias Psychiatric: denies: anxiety, depression Hematological/Lymphatic: denies: easy bleeding, easy bruising ED Past Medical Hx - Past Medical History Hx Asthma: Yes - Surgical History Additional Surgical History: right collar bone surgery, 1979 - Social History Smoking Status: Never Smoker Substance Use Type: Alcohol - Medications Home Medications: Home Medications Medication Instructions Recorded Confirmed Last Taken Type ALBUTEROL Inhaler [Proair] 2 puff IH QID PRN #1 pump 04/24/17 Unknown Rx predniSONE [Deltasone] 20 mg PO QDAY #10 tab 04/24/17 Unknown Rx ALBUTEROL Inhaler [Proair] 2 puff IH QID PRN #1 inhalation 08/20/17 Unknown Rx Azithromycin [Zithromax Z-CEZAR] 250 mg PO DAILY 1 Days tab 08/20/17 Unknown Rx Prednisone [predniSONE 10 mg 10 mg PO .TAPER #1 tab.ds.pk 08/20/17 Unknown Rx (6-Day Pack, 21 Tabs)] Albuterol Sulfate [Albuterol 0.63% 0.63 mg IH QID PRN 30 Days #1 ml 10/18/17 Unknown Rx NEBS] predniSONE [Deltasone] 60 mg PO QDAY #20 tab 10/18/17 Unknown Rx ALBUTEROL Inhaler [ProAir HFA 2 puff IH QID PRN #1 inhalation 01/24/18 Unknown Rx Inhaler] Fluticasone/Salmeterol [Advair 1 puff IH BID #1 disk.w.dev 01/24/18 Unknown Rx Diskus 500-50 mcg] Ipratropium/Albuterol Sulfate 1 ampul IH Q4H PRN #1 pack 01/24/18 Unknown Rx [DUONEB *Not for PRN Use*] Levofloxacin [Levaquin] 750 mg PO QDAY 9 Days #9 tablet 01/24/18 Unknown Rx guaiFENesin/DM 100/10MG 10 ml PO Q6HR PRN #200 ml 01/24/18 Unknown Rx [Robitussin Dm] ALBUTEROL Inhaler [ProAir HFA 2 puff IH QID PRN #1 inhalation 03/08/18 Unknown Rx Inhaler] Azithromycin [Zithromax Z-CEZAR] 250 mg PO DAILY #6 tablet 03/08/18 Unknown Rx Fluticasone/Salmeterol [Advair 1 puff IH BID #1 disk.w.dev 03/08/18 Unknown Rx Diskus 500-50 mcg] Prednisone [predniSONE 10 mg 10 mg PO .TAPER #1 tab.ds.pk 03/08/18 Unknown Rx (6-Day Pack, 21 Tabs)] ED Physical Exam - General Limitations: No Limitations General appearance: alert, in no apparent distress - Head Head exam: Present: atraumatic, normocephalic - Eye Eye exam: Present: normal appearance Pupils: Present: normal accommodation - ENT ENT exam: Present: normal exam, mucous membranes moist - Neck Neck exam: Present: normal inspection, full ROM. Absent: tenderness, meningismus - Respiratory Respiratory exam: Present: normal lung sounds bilaterally. Absent: respiratory distress, wheezes, rales, rhonchi, stridor - Cardiovascular Cardiovascular Exam: Present: regular rate, normal rhythm, normal heart sounds. Absent: bradycardia, tachycardia, irregular rhythm, systolic murmur, diastolic murmur, rubs, gallop - GI/Abdominal GI/Abdominal exam: Present: soft, normal bowel sounds. Absent: distended, tenderness, guarding, rebound, rigid, diminished bowel sounds - Rectal Rectal exam: Present: deferred - Extremities Exam Extremities exam: Present: normal inspection, full ROM, normal capillary refill - Back Exam Back exam: Present: normal inspection, full ROM - Neurological Exam Neurological exam: Present: alert, oriented X3, normal gait - Psychiatric Psychiatric exam: Present: normal affect, normal mood - Skin Skin exam: Present: warm, dry, intact, normal color. Absent: rash ED Course Vital Signs 03/08/18 03/08/18 15:13 18:10 Temperature 97.5 F L Pulse Rate 79 78 Respiratory 22 18 Rate Blood Pressure 131/90 Blood Pressure 124/84 [Right] O2 Sat by Pulse 94 97 Oximetry - Reevaluation(s) Reevaluation #1: 03/08/18 18:55 Patient is speaking in full sentences with no signs of distress noted. ED Medical Decision Making - Medical Decision Making This is a 48-year-old male that presents with asthma exacerbation. Patient is stable and was examined by me. Chest x-ray has been obtained and dictated by the radiologist. Patient is notified of the x-ray report with no question not by the patient. Patient received DuoNeb 2 and Solu-Medrol in the ED which patient stated that symptoms has resolved and subsided. Patient stated that short of breath has subsided. Posttreatment; wheezing has subsided upon auscultation. Patient is discharged with zpak, prednisone and albuterol due to abnormal chest xray. Patient was referred to Follow-up with a primary care doctor in 3-5 days or if symptoms worsen and continue return to emergency room as soon as possible. At time of discharge, the patient does not seem toxic or ill in appearance. No acute signs of distress noted. Patient agrees to discharge treatment plan of care. No further questions noted by the patient. This chart is dictated with using [employer] Patient is requested for a refill on adviar inhaler. Critical care attestation.: If time is entered above; I have spent that time in minutes in the direct care of this critically ill patient, excluding procedure time. ED Disposition Clinical Impression: Asthma exacerbation Qualifiers: Asthma severity: mild Asthma persistence: intermittent Qualified Code(s): J45.21 - Mild intermittent asthma with (acute) exacerbation Disposition: TO HOME OR SELFCARE Is pt being admited?: No Does the pt Need Aspirin: No Condition: Stable Instructions: Albuterol (By breathing), Prednisone (By mouth), Asthma (ED) Additional Instructions: Follow-up with a primary care doctor in 3-5 days or if symptoms worsen and continue return to emergency room as soon as possible. Prescriptions: ALBUTEROL Inhaler [ProAir HFA Inhaler] 2 puff IH QID PRN #1 inhalation PRN Reason: Shortness Of Breath Azithromycin [Zithromax Z-CEZAR] 250 mg PO DAILY #6 tablet Fluticasone/Salmeterol [Advair Diskus 500-50 mcg] 1 puff IH BID #1 disk.w.dev Prednisone [predniSONE 10 mg (6-Day Pack, 21 Tabs)] 10 mg PO .TAPER #1 tab.ds.pk Referrals: PRIMARY CARE, [Referring] - 3-5 Days PARMJIT MUHAMMAD MD [Staff Physician] - 3-5 Days [facility] [Outside] - 3-5 Days [facility] [Outside] - 3-5 Days Forms: Work/School Release Form(ED)
--- NOTE | 2018-03-08 19:00 | XRay Report ---
FINAL REPORT EXAM: XR CHEST ROUTINE 2V HISTORY: wheezing TECHNIQUE: Two views of the chest were performed Comparison: 01/23/2018 FINDINGS: Improved right infrahilar patchy opacity which is shown to be in the right lower lobe. Mild persistent bronchial thickening. Heart size is normal. There is mild persistent bronchial thickening in the perihilar distribution. No pleural effusion. There is biapical pleural thickening which is somewhat nodular on the left. Hilar contours are unremarkable. IMPRESSION: Improved right lower lobe patchy infiltrate. Persistent bilateral perihilar bronchial thickening and bilateral apical pleural thickening.
[2018-03-08 19:31] VITALS: BP 124/84
== END 2018-03-08 19:41 | disposition home or self-care (01) ==
LOC: ED 14:38
DX: J45.21 Mild intermittent asthma with (acute) exacerbation (principal)
CPT/HCPCS: 71046; 96372; 99283; J2405; J2930

== ENCOUNTER 2018-06-18 05:09 | Emergency (ER) | payer MEDICARE ==
[~2018-06-18 05:09] MED LIST: DUONEB *Not for PRN Use IH ONE
[2018-06-18] MEDS ORDERED: DUONEB *Not for PRN Use IH ONE (05:23)
[2018-06-18] MEDS ORDERED: ZOFRAN ONE (05:29)
[2018-06-18] MEDS ORDERED: ZOFRAN IV ONE (05:47)
--- NOTE | 2018-06-18 06:01 | XRay Report ---
FINAL REPORT EXAM: XR CHEST ROUTINE 2V HISTORY: productive cough TECHNIQUE: PA and lateral views of the chest were obtained and compared to the study of 03/08/2018. FINDINGS: The lungs are hyperinflated. There scarring of both lung apices. The lungs are not overtly congested. There are no localized infiltrates or effusions. The heart size is normal. The skeletal structures do not show any acute changes. IMPRESSION: COPD.. Scarring in both lung apices. No acute infiltrates or congestion.
[2018-06-18] MEDS ORDERED: ATROVENT IH ONE ×2 (06:57→07:02)
[2018-06-18] MEDS ORDERED: PROVENTIL IH ONE ×2 (07:00→07:02)
--- NOTE | 2018-06-18 07:06 | Emergency Department Report ---
Blank Doc - Documentation Documentation: This is a 48-year-old male here presenting that he has asthma exacerbation he takes albuterol inhaler but it is not working. He is reporting cough and wheezing and some shortness of breath. Patient is here to be treated. Physical exam shows patient with widespread wheeze into his lung hicks, dry cough without any use of accessory muscles. He is tachycardia at 106. Beatriz temperature on documentations so they will retake temperature. Patient generally in no acute distress and well-developed, well-nourished. He is non- toxic in appearance A/P Patient with acute exacerbation of [id number] report shows patient with COPD. Patient received DuoNeb 1 nebulizer in triage area along with Solu-Medrol 125 mg IV and he reports that he still needs treatment. He was started on albuterol 10 mg nebulizer and Atrovent 1 mg nebulizer and to be reevaluated after nebulizer treatment. The patient is diagnosis that he said he does have COPD but I told him that after having long-term asthma the skin turning to COPD and he will need to follow-up with local doctor to see if he can add on long acting antagonist along with steroids. He voiced understanding She is stable and currently receiving nebulizer treatment.
[2018-06-18 07:49] LABS: Basophils # (Auto) 0.1 K/mm3 (0.0-0.1); Basophils % (Auto) 0.9 % (0.0-1.8); Eosinophils # (Auto) 0.3 K/mm3 (0.0-0.4); Eosinophils % (Auto) 4.6 % (0.0-4.3); Hematocrit 47.8 % (35.5-45.6); Lymphocytes # (Auto) 0.7 K/mm3 (1.2-5.4); Lymphocytes % (Auto) 11.6 % (13.4-35.0); Mean Corpuscular HGB Conc 34 % (32-34); Mean Corpuscular Hemoglobin 29 pg (28-32); Mean Corpuscular Volume 87 fl (84-94); Monocytes # (Auto) 0.5 K/mm3 (0.0-0.8); Monocytes % (Auto) 8.5 % (0.0-7.3); Platelet Count 225 K/mm3 (140-440); Red Cell Distribution Width 14.2 % (13.2-15.2)
[2018-06-18 07:56] LABS: BUN/Creatinine Ratio 11; Blood Urea Nitrogen 11 mg/dL (9-20); Calcium 9.2 mg/dL (8.4-10.2); Hemolysis Index 10
--- NOTE | 2018-06-18 08:35 | Emergency Department Report ---
- General Chief Complaint: Adult Asthma Stated Complaint: ASTHMA Time Seen by Provider: 06/18/18 07:01 Source: patient Mode of arrival: Ambulatory Limitations: No Limitations - History of Present Illness Initial Comments: This is a 31-year-old female nontoxic, well nourished in appearance, no acute signs of distress presents to the ED with c/o of acute on chronic asthma exacerbation. Patient stated that everytime he developes a "cold" he gets this. Patient stated has productive cough with rhinorrhea and nasal congestion. Patient Patient describes productive cough as yellow/green mucus production. Patient stated he has been taking his inhaler with no relief. Patient stated that she has seasonal allergies to pollen and has been outside that might have triggered her symptoms. Patient denies any sick contact. Patient denies any recent travels, long car, recent hospital stays. Patient denies any calf pain or calf tenderness. Patient denies any chest pain, short of breath, fever, chills, nausea, vomiting, hemoptysis, numbness, tingling, headache or stiff neck. Allergies includes PCN with past medical history of asthma. MD Complaint: cough, rhinorrhea, nasal congestion, other (wheezing) -: days(s) (2) Severity: mild Consistency: constant Improves With: nothing Worsens With: nothing Associated Symptoms: rhinorrhea, nasal congestion, cough, shortness of breath. denies: fever, chills, myalgias, diaphoresis, headache, sore throat, stiff neck , chest pain, abdominal pain, nausea, vomiting, diarrhea, dysuria, rash, confusion, right sweats, weight loss, epistaxis, hoarseness, ear pain Treatments Prior to Arrival: none - Related Data Previous Rx's Medication Instructions Recorded Last Taken Type ALBUTEROL Inhaler [Proair] 2 puff IH QID PRN #1 pump 04/24/17 Unknown Rx predniSONE [Deltasone] 20 mg PO QDAY #10 tab 04/24/17 Unknown Rx ALBUTEROL Inhaler [Proair] 2 puff IH QID PRN #1 inhalation 08/20/17 Unknown Rx Azithromycin [Zithromax Z-CEZAR] 250 mg PO DAILY 1 Days tab 08/20/17 Unknown Rx Prednisone [predniSONE 10 mg 10 mg PO .TAPER #1 tab.ds.pk 08/20/17 Unknown Rx (6-Day Pack, 21 Tabs)] Albuterol Sulfate [Albuterol 0.63% 0.63 mg IH QID PRN 30 Days #1 ml 10/18/17 Unknown Rx NEBS] predniSONE [Deltasone] 60 mg PO QDAY #20 tab 10/18/17 Unknown Rx ALBUTEROL Inhaler [ProAir HFA 2 puff IH QID PRN #1 inhalation 01/24/18 Unknown Rx Inhaler] Fluticasone/Salmeterol [Advair 1 puff IH BID #1 disk.w.dev 01/24/18 Unknown Rx Diskus 500-50 mcg] Ipratropium/Albuterol Sulfate 1 ampul IH Q4H PRN #1 pack 01/24/18 Unknown Rx [DUONEB *Not for PRN Use*] Levofloxacin [Levaquin] 750 mg PO QDAY 9 Days #9 tablet 01/24/18 Unknown Rx guaiFENesin/DM 100/10MG 10 ml PO Q6HR PRN #200 ml 01/24/18 Unknown Rx [Robitussin Dm] ALBUTEROL Inhaler [ProAir HFA 2 puff IH QID PRN #1 inhalation 03/08/18 Unknown Rx Inhaler] Azithromycin [Zithromax Z-CEZAR] 250 mg PO DAILY #6 tablet 03/08/18 Unknown Rx Fluticasone/Salmeterol [Advair 1 puff IH BID #1 disk.w.dev 03/08/18 Unknown Rx Diskus 500-50 mcg] Prednisone [predniSONE 10 mg 10 mg PO .TAPER #1 tab.ds.pk 03/08/18 Unknown Rx (6-Day Pack, 21 Tabs)] ALBUTEROL Inhaler [ProAir HFA 2 puff IH QID PRN #1 inhalation 06/18/18 Unknown Rx Inhaler] Azithromycin [Zithromax Z-CEZAR] 250 mg PO DAILY #6 tablet 06/18/18 Unknown Rx Prednisone [predniSONE 10 mg 10 mg PO .TAPER #1 tab.ds.pk 06/18/18 Unknown Rx (6-Day Pack, 21 Tabs)] Allergies Allergy/AdvReac Type Severity Reaction Status Date / Time Penicillins Allergy Shortness Verified 04/24/17 08:13 of Breath ED Review of Systems ROS: Stated complaint: ASTHMA Other details as noted in HPI Constitutional: denies: chills, fever Eyes: denies: eye pain, eye discharge, vision change ENT: denies: ear pain, throat pain Respiratory: cough, shortness of breath, wheezing Cardiovascular: denies: chest pain, palpitations Endocrine: no symptoms reported Gastrointestinal: denies: abdominal pain, nausea, diarrhea Genitourinary: denies: urgency, dysuria Musculoskeletal: denies: back pain, joint swelling, arthralgia Skin: denies: rash, lesions Neurological: denies: headache, weakness, paresthesias Psychiatric: denies: anxiety, depression Hematological/Lymphatic: denies: easy bleeding, easy bruising ED Past Medical Hx - Past Medical History Hx Asthma: Yes - Surgical History Additional Surgical History: right collar bone surgery, 1978 - Social History Smoking Status: Current Every Day Smoker Substance Use Type: None - Medications Home Medications: Home Medications Medication Instructions Recorded Confirmed Last Taken Type ALBUTEROL Inhaler [Proair] 2 puff IH QID PRN #1 pump 04/24/17 Unknown Rx predniSONE [Deltasone] 20 mg PO QDAY #10 tab 04/24/17 Unknown Rx ALBUTEROL Inhaler [Proair] 2 puff IH QID PRN #1 inhalation 08/20/17 Unknown Rx Azithromycin [Zithromax Z-CEZAR] 250 mg PO DAILY 1 Days tab 08/20/17 Unknown Rx Prednisone [predniSONE 10 mg 10 mg PO .TAPER #1 tab.ds.pk 08/20/17 Unknown Rx (6-Day Pack, 21 Tabs)] Albuterol Sulfate [Albuterol 0.63% 0.63 mg IH QID PRN 30 Days #1 ml 10/18/17 Unknown Rx NEBS] predniSONE [Deltasone] 60 mg PO QDAY #20 tab 10/18/17 Unknown Rx ALBUTEROL Inhaler [ProAir HFA 2 puff IH QID PRN #1 inhalation 01/24/18 Unknown Rx Inhaler] Fluticasone/Salmeterol [Advair 1 puff IH BID #1 disk.w.dev 01/24/18 Unknown Rx Diskus 500-50 mcg] Ipratropium/Albuterol Sulfate 1 ampul IH Q4H PRN #1 pack 01/24/18 Unknown Rx [DUONEB *Not for PRN Use*] Levofloxacin [Levaquin] 750 mg PO QDAY 9 Days #9 tablet 01/24/18 Unknown Rx guaiFENesin/DM 100/10MG 10 ml PO Q6HR PRN #200 ml 01/24/18 Unknown Rx [Robitussin Dm] ALBUTEROL Inhaler [ProAir HFA 2 puff IH QID PRN #1 inhalation 03/08/18 Unknown Rx Inhaler] Azithromycin [Zithromax Z-CEZAR] 250 mg PO DAILY #6 tablet 03/08/18 Unknown Rx Fluticasone/Salmeterol [Advair 1 puff IH BID #1 disk.w.dev 03/08/18 Unknown Rx Diskus 500-50 mcg] Prednisone [predniSONE 10 mg 10 mg PO .TAPER #1 tab.ds.pk 03/08/18 Unknown Rx (6-Day Pack, 21 Tabs)] ALBUTEROL Inhaler [ProAir HFA 2 puff IH QID PRN #1 inhalation 06/18/18 Unknown Rx Inhaler] Azithromycin [Zithromax Z-CEZAR] 250 mg PO DAILY #6 tablet 06/18/18 Unknown Rx Prednisone [predniSONE 10 mg 10 mg PO .TAPER #1 tab.ds.pk 06/18/18 Unknown Rx (6-Day Pack, 21 Tabs)] ED Physical Exam - General Limitations: No Limitations General appearance: alert, in no apparent distress - Head Head exam: Present: atraumatic, normocephalic - Eye Eye exam: Present: normal appearance, PERRL, EOMI Pupils: Present: normal accommodation - ENT ENT exam: Present: normal exam, mucous membranes moist - Neck Neck exam: Present: normal inspection, full ROM. Absent: tenderness, meningismus, lymphadenopathy - Respiratory Respiratory exam: Present: normal lung sounds bilaterally, wheezes (bilateral upper and lower lobes). Absent: respiratory distress, rales, rhonchi, stridor, chest wall tenderness, accessory muscle use, decreased breath sounds, prolonged expiratory - Cardiovascular Cardiovascular Exam: Present: regular rate, normal rhythm, normal heart sounds. Absent: irregular rhythm, systolic murmur, diastolic murmur, rubs, gallop - GI/Abdominal GI/Abdominal exam: Present: soft, normal bowel sounds. Absent: distended, tenderness, guarding, rebound, rigid, diminished bowel sounds - Rectal Rectal exam: Present: deferred - Extremities Exam Extremities exam: Present: normal inspection, full ROM, normal capillary refill. Absent: tenderness - Back Exam Back exam: Present: normal inspection, full ROM - Neurological Exam Neurological exam: Present: alert, oriented X3, normal gait - Psychiatric Psychiatric exam: Present: normal affect, normal mood - Skin Skin exam: Present: warm, dry, intact, normal color. Absent: rash ED Course Vital Signs 06/18/18 06/18/18 06/18/18 05:06 05:17 07:05 Temperature 32.1 F L 98.3 F Pulse Rate 106 H 104 H 88 Respiratory 18 16 20 Rate Blood Pressure 141/79 141/79 O2 Sat by Pulse 94 100 96 Oximetry 06/18/18 08:13 Temperature Pulse Rate 103 H Respiratory 17 Rate Blood Pressure O2 Sat by Pulse 96 Oximetry - Reevaluation(s) Reevaluation #1: 06/18/18 08:34 Patient is speaking in full sentences with no signs of distress noted. ED Medical Decision Making - Lab Data Result diagrams: 06/18/18 07:26 06/18/18 07:26 - Medical Decision Making This is a 48-year-old male that presents with asthma exacerbation and URI. Patient is stable and was examined by me. Chest x-ray has been obtained and dictated by the radiologist with COPD. Patient stated has never been diagnosed with COPD. Labs unremarkable with normal BNP results. Patient is notified of the x-ray report with no questions noted by the patient. Patient did receive breathing treatment and steroids in the ED which patient the symptoms has resolved and subsided. Posttreatment and there is no wheezing upon auscultation. Patient is discharged with zpak, albuterol and prednisone. Patient was referred to Follow-up with a primary care/[employer] doctor in 2- 3 days or if symptoms worsen and continue return to emergency room as soon as possible. At time of discharge, the patient does not seem toxic or ill in appearance. No acute signs of distress noted. Patient agrees to discharge treatment plan of care. No further questions noted by the patient. This chart is dictated with using [employer] Critical care attestation.: If time is entered above; I have spent that time in minutes in the direct care of this critically ill patient, excluding procedure time. ED Disposition Clinical Impression: Asthma exacerbation Qualifiers: Asthma severity: mild Asthma persistence: intermittent Qualified Code(s): J45.21 - Mild intermittent asthma with (acute) exacerbation URI (upper respiratory infection) Qualifiers: URI type: unspecified URI Qualified Code(s): J06.9 - Acute upper respiratory infection, unspecified Disposition: DC-01 TO HOME OR SELFCARE Is pt being admited?: No Does the pt Need Aspirin: No Condition: Stable Instructions: Asthma (ED), Upper Respiratory Infection (ED) Additional Instructions: Follow-up with a primary care/[employer] doctor in 2-3 days or if symptoms worsen and continue return to emergency room as soon as possible. Prescriptions: ALBUTEROL Inhaler [ProAir HFA Inhaler] 2 puff IH QID PRN #1 inhalation PRN Reason: Shortness Of Breath Azithromycin [Zithromax Z-CEZAR] 250 mg PO DAILY #6 tablet Prednisone [predniSONE 10 mg (6-Day Pack, 21 Tabs)] 10 mg PO .TAPER #1 tab.ds.pk [facility] [Referring] - 3-5 Days VIDHYA JACKSON MD [Staff Physician] - 3-5 Days [facility] [Outside] - 3-5 Days Forms: Work/School Release Form(ED)
[2018-06-18 08:52] VITALS: BP 138/87
== END 2018-06-18 08:47 | disposition home or self-care (01) ==
LOC: ED 05:09
DX: J45.21 Mild intermittent asthma with (acute) exacerbation (principal); J06.9 Acute upper respiratory infection, unspecified; F17.200 Nicotine dependence, unspecified, uncomplicated; Z88.0 Allergy status to penicillin
CPT/HCPCS: 36415; 71046; 80048; 83880; 85025; 96374; 96375; 99284; J2405; J2930

== ENCOUNTER 2018-09-14 09:51 | Emergency (ER) | payer MEDICARE ==
[2018-09-14] MEDS ORDERED: PROVENTIL IH ONE (10:24)
[2018-09-14] MEDS ORDERED: ATROVENT IH ONE (10:24)
[2018-09-14] MEDS ORDERED: SOLU-Medrol IV ONE (10:24)
--- NOTE | 2018-09-14 10:50 | Emergency Department Report ---
ED Asthma HPI - General Chief Complaint: Adult Asthma Stated Complaint: ASTHMA/FLU Time Seen by Provider: 09/14/18 10:19 Source: patient Mode of arrival: Ambulatory Limitations: No Limitations - History of Present Illness Initial Comments: 48-year-old male with history of asthma presents to ED with reports of shortness of breath 2 days. Patient reports wheezing, cough productive of yellowish sputum, subjective fever, and body aches. Patient states has not gotten flu shot this year. MD Complaint: "asthma attack" -: days(s) (2) Severity: similar to prior Context: recent URI Associated Symptoms: productive cough, fever Treatments Prior to Arrival: inhaled bronchodilator - Related Data Previous Rx's Medication Instructions Recorded Last Taken Type ALBUTEROL Inhaler (OR & NICU) 2 puff IH QID PRN #1 pump 04/24/17 Unknown Rx [Proair] predniSONE [Deltasone] 20 mg PO QDAY #10 tab 04/24/17 Unknown Rx ALBUTEROL Inhaler (OR & NICU) 2 puff IH QID PRN #1 inhalation 08/20/17 Unknown Rx [Proair] Azithromycin [Zithromax Z-CEZAR] 250 mg PO DAILY 1 Days tab 08/20/17 Unknown Rx Prednisone [predniSONE 10 mg 10 mg PO .TAPER #1 tab.ds.pk 08/20/17 Unknown Rx (6-Day Pack, 21 Tabs)] Albuterol Sulfate [Albuterol 0.63% 0.63 mg IH QID PRN 30 Days #1 ml 10/18/17 Unknown Rx NEBS] predniSONE [Deltasone] 60 mg PO QDAY #20 tab 10/18/17 Unknown Rx ALBUTEROL Inhaler (OR & NICU) 2 puff IH QID PRN #1 inhalation 01/24/18 Unknown Rx [ProAir HFA Inhaler] Fluticasone/Salmeterol [Advair 1 puff IH BID #1 disk.w.dev 01/24/18 Unknown Rx Diskus 500-50 mcg] Ipratropium/Albuterol Sulfate 1 ampul IH Q4H PRN #1 pack 01/24/18 Unknown Rx [DUONEB *Not for PRN Use*] guaiFENesin/DM 100/10MG 10 ml PO Q6HR PRN #200 ml 01/24/18 Unknown Rx [Robitussin Dm] levoFLOXacin [Levaquin] 750 mg PO QDAY 9 Days #9 tablet 01/24/18 Unknown Rx ALBUTEROL Inhaler (OR & NICU) 2 puff IH QID PRN #1 inhalation 03/08/18 Unknown Rx [ProAir HFA Inhaler] Azithromycin [Zithromax Z-CEZAR] 250 mg PO DAILY #6 tablet 03/08/18 Unknown Rx Fluticasone/Salmeterol [Advair 1 puff IH BID #1 disk.w.dev 03/08/18 Unknown Rx Diskus 500-50 mcg] Prednisone [predniSONE 10 mg 10 mg PO .TAPER #1 tab.ds.pk 03/08/18 Unknown Rx (6-Day Pack, 21 Tabs)] ALBUTEROL Inhaler (OR & NICU) 2 puff IH QID PRN #1 inhalation 06/18/18 Unknown Rx [ProAir HFA Inhaler] Azithromycin [Zithromax Z-CEZAR] 250 mg PO DAILY #6 tablet 06/18/18 Unknown Rx Prednisone [predniSONE 10 mg 10 mg PO .TAPER #1 tab.ds.pk 06/18/18 Unknown Rx (6-Day Pack, 21 Tabs)] ALBUTEROL Inhaler(NF) [VENTOLIN 1 puff IH Q4HR PRN #1 inha 09/14/18 Unknown Rx Inhaler(NF)] Benzonatate [Tessalon Perles] 100 mg PO Q8HR PRN #20 capsule 09/14/18 Unknown Rx predniSONE [Prednisone] 50 mg PO DAILY #5 tablet 09/14/18 Unknown Rx Allergies Allergy/AdvReac Type Severity Reaction Status Date / Time Penicillins Allergy Shortness Verified 09/14/18 10:02 of Breath ED Review of Systems ROS: Stated complaint: ASTHMA/FLU Other details as noted in HPI Comment: All other systems reviewed and negative Constitutional: fever Respiratory: cough, shortness of breath, wheezing Cardiovascular: denies: chest pain Gastrointestinal: denies: nausea, vomiting Musculoskeletal: myalgia ED Past Medical Hx - Past Medical History Hx Asthma: Yes - Surgical History Additional Surgical History: right collar bone surgery, 1978 - Social History Smoking Status: Never Smoker Substance Use Type: None - Medications Home Medications: Home Medications Medication Instructions Recorded Confirmed Last Taken Type ALBUTEROL Inhaler (OR & NICU) 2 puff IH QID PRN #1 pump 04/24/17 Unknown Rx [Proair] predniSONE [Deltasone] 20 mg PO QDAY #10 tab 04/24/17 Unknown Rx ALBUTEROL Inhaler (OR & NICU) 2 puff IH QID PRN #1 inhalation 08/20/17 Unknown Rx [Proair] Azithromycin [Zithromax Z-CEZAR] 250 mg PO DAILY 1 Days tab 08/20/17 Unknown Rx Prednisone [predniSONE 10 mg 10 mg PO .TAPER #1 tab.ds.pk 08/20/17 Unknown Rx (6-Day Pack, 21 Tabs)] Albuterol Sulfate [Albuterol 0.63% 0.63 mg IH QID PRN 30 Days #1 ml 10/18/17 Unknown Rx NEBS] predniSONE [Deltasone] 60 mg PO QDAY #20 tab 10/18/17 Unknown Rx ALBUTEROL Inhaler (OR & NICU) 2 puff IH QID PRN #1 inhalation 01/24/18 Unknown Rx [ProAir HFA Inhaler] Fluticasone/Salmeterol [Advair 1 puff IH BID #1 disk.w.dev 01/24/18 Unknown Rx Diskus 500-50 mcg] Ipratropium/Albuterol Sulfate 1 ampul IH Q4H PRN #1 pack 01/24/18 Unknown Rx [DUONEB *Not for PRN Use*] guaiFENesin/DM 100/10MG 10 ml PO Q6HR PRN #200 ml 01/24/18 Unknown Rx [Robitussin Dm] levoFLOXacin [Levaquin] 750 mg PO QDAY 9 Days #9 tablet 01/24/18 Unknown Rx ALBUTEROL Inhaler (OR & NICU) 2 puff IH QID PRN #1 inhalation 03/08/18 Unknown Rx [ProAir HFA Inhaler] Azithromycin [Zithromax Z-CEZAR] 250 mg PO DAILY #6 tablet 03/08/18 Unknown Rx Fluticasone/Salmeterol [Advair 1 puff IH BID #1 disk.w.dev 03/08/18 Unknown Rx Diskus 500-50 mcg] Prednisone [predniSONE 10 mg 10 mg PO .TAPER #1 tab.ds.pk 03/08/18 Unknown Rx (6-Day Pack, 21 Tabs)] ALBUTEROL Inhaler (OR & NICU) 2 puff IH QID PRN #1 inhalation 06/18/18 Unknown Rx [ProAir HFA Inhaler] Azithromycin [Zithromax Z-CEZAR] 250 mg PO DAILY #6 tablet 06/18/18 Unknown Rx Prednisone [predniSONE 10 mg 10 mg PO .TAPER #1 tab.ds.pk 06/18/18 Unknown Rx (6-Day Pack, 21 Tabs)] ALBUTEROL Inhaler(NF) [VENTOLIN 1 puff IH Q4HR PRN #1 inha 09/14/18 Unknown Rx Inhaler(NF)] Benzonatate [Tessalon Perles] 100 mg PO Q8HR PRN #20 capsule 09/14/18 Unknown Rx predniSONE [Prednisone] 50 mg PO DAILY #5 tablet 09/14/18 Unknown Rx ED Physical Exam - General Limitations: No Limitations General appearance: alert - Head Head exam: Present: atraumatic, normocephalic - Eye Eye exam: Present: normal appearance - ENT ENT exam: Present: mucous membranes moist - Neck Neck exam: Present: normal inspection - Respiratory Respiratory exam: Present: respiratory distress (moderate), wheezes (bilaterally ), prolonged expiratory - Cardiovascular Cardiovascular Exam: Present: regular rate, normal rhythm - GI/Abdominal GI/Abdominal exam: Present: soft. Absent: tenderness - Extremities Exam Extremities exam: Present: normal inspection - Neurological Exam Neurological exam: Present: alert, oriented X3 - Psychiatric Psychiatric exam: Present: normal affect, normal mood - Skin Skin exam: Present: warm, dry, intact, normal color ED Course Vital Signs 09/14/18 10:02 Temperature 97.8 F Pulse Rate 85 Respiratory 20 Rate Blood Pressure 116/71 O2 Sat by Pulse 98 Oximetry - Reevaluation(s) Reevaluation #1: 09/14/18 12:45 Pt feeling much better following breathing treatment. Wheezing resolved. ED Medical Decision Making - Radiology Data Radiology results: report reviewed, image reviewed CHEST XRAY, 2 VIEWS: History: Cough. Findings: There is coarsening of the perihilar markings. The lungs are clear and well expanded. The pleural spaces are clear. The cardiac silhouette and pulmonary vasculature are within normal limits for technique. The osseous structures appear within normal limits. IMPRESSION: Findings consistent with reactive airway disease or bronchiolitis. Transcribed By: TTR Dictated By: JENNIFER PENNINGTON JR, MD Electronically Authenticated By: JENNIFER PENNINGTON JR, MD Signed Date/Time: 09/14/18 1123 - Medical Decision Making 48-year-old male with history of asthma presents with shortness of pain and flulike symptoms. Flu swab negative. Patient afebrile. Chest x-ray negative. Solu-Medrol, mag sulfate and neb treatment given. Wheezing resolved, patient feeling much better. Will discharge at this time. - Differential Diagnosis asthma, pneumonia, influenza Critical care attestation.: If time is entered above; I have spent that time in minutes in the direct care of this critically ill patient, excluding procedure time. ED Disposition Clinical Impression: Asthma with acute exacerbation Disposition: - TO HOME OR SELFCARE Is pt being admited?: No Condition: Stable Instructions: Asthma (ED) Prescriptions: ALBUTEROL Inhaler(NF) [VENTOLIN Inhaler(NF)] 1 puff IH Q4HR PRN #1 inha PRN Reason: Wheezing Benzonatate [Tessalon Perles] 100 mg PO Q8HR PRN #20 capsule PRN Reason: Cough predniSONE [Prednisone] 50 mg PO DAILY #5 tablet Referrals: PRIMARY CARE, [Primary Care Provider] - 3-[address] [facility] [Provider Group] - 3-5 Days Time of Disposition: 13:31
[2018-09-14] MEDS ORDERED: MAGNESIUM SULFATE 2GM/50ML 2 GM/50 ML BAG IV ONE (11:00)
--- NOTE | 2018-09-14 11:25 | XRay Report ---
CHEST XRAY, 2 VIEWS: History: Cough. Findings: There is coarsening of the perihilar markings. The lungs are clear and well expanded. The pleural spaces are clear. The cardiac silhouette and pulmonary vasculature are within normal limits for technique. The osseous structures appear within normal limits. IMPRESSION: Findings consistent with reactive airway disease or bronchiolitis.
[2018-09-14] MEDS ORDERED: ZOFRAN ONE (11:49)
[2018-09-14] MEDS ORDERED: ZOFRAN IV ONE (12:12)
[2018-09-14 13:43] VITALS: BP 125/74
== END 2018-09-14 13:41 | disposition home or self-care (01) ==
LOC: ED 09:51
DX: J45.901 Unspecified asthma with (acute) exacerbation (principal); Z88.0 Allergy status to penicillin
CPT/HCPCS: 71046; 87400; 94640; 96365; 96375; 99284; J2405; J2930; J3475